=== PATIENT | female | born 1995 | race Hispanic/Latino ===

== ENCOUNTER 2019-03-16 05:30 | Inpatient (IN) | payer OTHER ==
--- NOTE | 2019-03-16 01:08 | PDOC.LDHP ---
Labor and Delivery H&P HPI: 23 y/o at 40 and 4/7 weeks for term induction (post-dates) Current gestational age (weeks): 40 Due date: 03/12/19 Grav: 1 Para: 0 Current complications: none Abnormal US findings: No Current medications: pre-rashawn vitamins Previous surgical history: none Allergies/Adverse Reactions: Allergies Allergy/AdvReac Type Severity Reaction Status Date / Time No Known Allergies Allergy Unverified 11/21/12 10:54 Social history: none - Physical Exam Vital signs reviewed and normal: yes General: NAD Heart: RRR Abdomen: gravid Extremeties: no edema FHT: category 1 - Assessment L&D Assessment: elective induction at term - Plan Plan: admit to L&D, cervical ripening
[~2019-03-16 05:30] MED LIST: Acetaminophen 500 MG TAB PO PRN; Butorphanol Tartrate 1 MG/ML VIAL SLOW IVP PRN; Carboprost 250 MCG/ML AMP IM PRN; NS w/ Oxytocin 10 units 500 ML IV SCH
[2019-03-16] MEDS ORDERED: Methylergonovine 0.2 MG/ML VIAL IM PRN (06:00)
[2019-03-16] MEDS ORDERED: Misoprostol 200 MCG TAB PR PRN (06:00)
[2019-03-16] MEDS ORDERED: Promethazine HCl 25 MG/ML VIAL IM PRN ×2 (06:00→20:55)
[2019-03-16] MEDS ORDERED: Lidocaine 1% (PF) 30 ML VIAL SC PRN (06:00)
[2019-03-16] MEDS ORDERED: Ibuprofen 800 MG TAB PO PRN (06:00)
[2019-03-16] MEDS ORDERED: hydrALAZINE 20 MG/ML VIAL SLOW IVP PRN (06:00)
[2019-03-16] MEDS ORDERED: Diphenoxylate HCl/Atropine Tablet PO PRN ×2 (06:00)
[2019-03-16] MEDS ORDERED: HYDROcodone/Acetaminophen 5/325 mg Tablet PO PRN ×2 (06:00)
[2019-03-16] MEDS ORDERED: Ondansetron PF 4 MG/2 ML Vial IVP PRN ×2 (06:00→20:55)
[2019-03-16 08:16] VITALS: BMI 33.9
[2019-03-16 08:19] LABS: Hemoglobin 12.2 g/dL (12.0-16.0); Mean Corpuscular HGB CONC 34.9 g/dL (32.0-36.0); Mean Corpuscular Hemoglobin 30.1 pg (27.0-31.0); Mean Corpuscular Volume 86.1 fL (78.0-98.0); Mean Platelet Volume 8.8 fL (7.4-10.4); Platelet Count 170 thou/uL (130-400); RBC Distribution Width 11.4 % (11.5-14.5); Red Blood Cell (RBC) Count 4.06 mill/uL (4.20-5.40); White Blood Cell (WBC) Count 9.8 thou/uL (4.8-10.8)
[2019-03-16] MEDS: Misoprostol 100 MCG TAB VAG SCH ×3 (08:53→19:15)
[2019-03-16] MEDS: Lactated Ringer's 1,000 ML IV SCH ×4 (08:54→20:16)
[2019-03-16 09:00] LABS: HBSAg Index 0.27 S/CO (0-0.99); Hep B Surf Ag Non-Reactive S/CO (NonReactive)
[2019-03-16 09:01] LABS: Syphilis Antibody Nonreactive (Nonreactive); Syphilis Antibody Index 0.04 S/CO (<1.00 Non-Reactive)
[2019-03-16] MEDS ORDERED: Bupivacaine 0.25% HCL 30 ML VIAL ONE (09:31)
[2019-03-16] MEDS: NS w/ Oxytocin 10 units 500 ML IV SCH (19:14)
[2019-03-16] MEDS ORDERED: Fentanyl 4 mcg/Bup 0.1% Cadd 100 ML ONE (20:12)
[2019-03-16] MEDS ORDERED: Naloxone HCl 0.4 mg/ml Vial IVP PRN ×2 (20:55)
[2019-03-16] MEDS ORDERED: Acetaminophen 325 MG TAB PO PRN (20:55)
[2019-03-16] MEDS ORDERED: diphenhydrAMINE 50 MG/ML VIAL IVP PRN (20:55)
[2019-03-16] MEDS ORDERED: ePHEDrine/0.9% NaCl/PF SYRINGE 50 mg/10 ml SLOW IVP PRN (20:55)
[2019-03-16] MEDS ORDERED: Lactated Ringer's 500 ML IV PRN (20:55)
[2019-03-16] MEDS ORDERED: Communication Order-Pharmacy FS SCH (21:00)
[2019-03-16] MEDS ORDERED: Fentanyl 4 mcg/Bupivacaine 0.1% Cassette 100 ML EPIDURAL SCH (21:00)
[2019-03-17] MEDS: NS / Oxytocin 40 units/1000ml 1,000 ML IV PRN ×2 (00:39→01:34)
[2019-03-17] MEDS ORDERED: Misoprostol 200 MCG TAB VAG PRN ×2 (02:35→21:28)
[2019-03-17] MEDS ORDERED: Benzocaine-Menthol 82.5 ML CAN TOP PRN ×2 (02:35→21:26)
[2019-03-17] MEDS ORDERED: hydrALAZINE 20 MG/ML VIAL SLOW IVP PRN ×2 (02:35→21:27)
[2019-03-17] MEDS ORDERED: Promethazine HCl 25 MG/ML VIAL IM PRN ×2 (02:35→21:29)
[2019-03-17] MEDS ORDERED: diphenhydrAMINE 25 MG CAP PO PRN ×2 (02:35→21:26)
[2019-03-17] MEDS ORDERED: Zolpidem Tartrate 5 MG TAB PO PRN ×2 (02:35→21:29)
[2019-03-17] MEDS ORDERED: HYDROcodone/Acetaminophen 5/325 mg Tablet PO PRN ×4 (02:35→21:27)
[2019-03-17] MEDS ORDERED: Bisacodyl 10 MG SUPP PR PRN ×2 (02:35→21:26)
[2019-03-17] MEDS ORDERED: Methylergonovine 0.2 MG/ML VIAL IM PRN ×2 (02:35→21:28)
[2019-03-17] MEDS ORDERED: Preparation H Ointment 28 GM TUBE PR PRN ×2 (02:35→21:29)
[2019-03-17] MEDS ORDERED: Milk Of Magnesia 30 ML UDCUP PO PRN ×2 (02:35→21:28)
[2019-03-17] MEDS ORDERED: Lanolin Ointment 7 GM TUBE TOP PRN ×2 (02:35→21:28)
[2019-03-17] MEDS ORDERED: Ondansetron PF 4 MG/2 ML Vial IVP PRN ×2 (02:35→21:28)
[2019-03-17] MEDS ORDERED: NS / Oxytocin 40 units/1000ml 1,000 ML IV SCH ×2 (02:35→21:30)
[2019-03-17] MEDS: Ibuprofen 800 MG TAB PO SCH ×4 (04:45→23:12)
[2019-03-17 05:38] LABS: Mean Corpuscular HGB CONC 34.5 g/dL (32.0-36.0); Mean Corpuscular Hemoglobin 29.9 pg (27.0-31.0); Mean Corpuscular Volume 86.7 fL (78.0-98.0); Mean Platelet Volume 8.7 fL (7.4-10.4); Platelet Count 140 thou/uL (130-400); RBC Distribution Width 11.5 % (11.5-14.5); Red Blood Cell (RBC) Count 3.69 mill/uL (4.20-5.40); White Blood Cell (WBC) Count 14.2 thou/uL (4.8-10.8)
[2019-03-17] MEDS ORDERED: Measles/Mumps/Rubella 10 MCG/0.5 ML VIAL SC ONE (09:00)
[2019-03-17] MEDS ORDERED: Varicella virus, LIVE 0.5 ML VIAL SC ONE (09:00)
[2019-03-17] MEDS ORDERED: Adacel (T-DAP) 0.5 ML SYRINGE IM ONE (09:00)
[2019-03-17] MEDS ORDERED: Prenatal Vitamin 1 TAB PO SCH (09:00)
--- NOTE | 2019-03-17 13:56 | PDOC.PP ---
Post Progress Note Post Day #: 0 PO intake tolerated: yes Flatus: yes Ambulation: yes Vital Signs (12 hours) Temp Pulse Resp BP Pulse Ox 03/17/19 12:11 98.3 F 73 20 110/54 L 03/17/19 08:15 97.7 F 100 20 120/75 98 03/17/19 03:30 98.5 F 85 17 118/58 L 98 Weight Weight 210 lb - Physical Examination General: NAD Cardiovascular: no m/r/g, RRR Respiratory: clear to auscultation bilaterally, non-labored breathing Abdominal: + bowel sounds, lochia, no distention Extremities: negative homans (B) Neurological: no gross focal deficits Psychiatric: A&Ox3, normal affect Result Diagrams: 03/17/19 05:26 Additional Labs: Post Labs Blood Type B POSITIVE 03/16/19 09:57 Hep Bs Antigen Non-Reactive S/CO (NonReactive) 03/16/19 08:08
[2019-03-17] MEDS: Docusate Calcium (SURFAK) 240 MG CAP PO SCH ×2 (14:06→21:32)
--- NOTE | 2019-03-17 15:26 | DN ---
DATE OF PROCEDURE: 03/17/2019 TIME OF SERVICE: 0033 Central Standard Time. PREOPERATIVE DIAGNOSIS: Intrauterine at 40 weeks and 4 days. POSTOPERATIVE DIAGNOSIS: Intrauterine at 40 weeks and 4 days. PROCEDURE: Spontaneous vaginal delivery over first-degree laceration of the perineum and a right periurethral laceration. FINDINGS: Viable female infant weighing 3169 g or 7 pounds 0 ounces. Apgars 9 and 9. QUANTITATIVE BLOOD LOSS: 292. COMPLICATIONS: None. PROCEDURE IN DETAIL: The patient presented to [facility] where she was admitted to the labor and delivery service. The patient underwent a normal and uneventful labor with normal cervical dilatation until she was found to be completely dilated. She was then allowed to push and was able to bring the baby down and delivered the baby in a vertex presentation without difficulties. Once the head delivered in occiput anterior position, the shoulders followed spontaneously along with the rest of the baby's body. Once out the baby's mouth and nose were bulb suctioned. The cord was clamped and cut and baby was handed to waiting attendants. Cord blood was collected. Gentle fundal massage was performed and the placenta delivered intact without problems. Hemostasis was assured. Quantitative blood loss was calculated. Inspection of the cervix, vaginal vault, and perineum did not reveal any lacerations needing suturing. Once again, hemostasis was within normal limits and the patient was allowed to recover in the labor and delivery room. Baby went to nursery. Job ID: [id number]
[2019-03-17] MEDS: Ferrous Sulfate 325 MG TAB PO SCH (21:00)
[2019-03-17] MEDS: Misoprostol 100 MCG TAB VAG SCH (21:01)
[2019-03-17] MEDS: NS w/ Oxytocin 10 units 500 ML IV SCH (21:02)
[2019-03-17] MEDS ORDERED: Docusate Calcium (SURFAK) 240 MG CAP PO SCH (21:30)
[2019-03-18] MEDS: Misoprostol 100 MCG TAB VAG SCH (05:00)
[2019-03-18] MEDS: Ibuprofen 800 MG TAB PO SCH ×2 (05:06→14:19)
[2019-03-18] MEDS ORDERED: Ferrous Sulfate 325 MG TAB PO SCH (08:00)
[2019-03-18 08:24] VITALS: BP 123/59; TEMP 97.6
[2019-03-18] MEDS ORDERED: Docusate Calcium (SURFAK) 240 MG CAP PO SCH (09:00)
[2019-03-18] MEDS ORDERED: Prenatal Vitamin 1 TAB PO SCH (09:00)
== END 2019-03-18 15:50 | disposition home or self-care (01) | DRG 807 ==
LOC: L&D 05:50 → 3SW 03-17 04:15 → UNDODISIN 03-17 16:45
PROVIDERS: ADMIT Obstetrics & Gynecology; ATTEND Obstetrics & Gynecology
PROC: 3E0P7VZ Introduction of Hormone into Female Reproductive, Via Natural or Artificial Opening (ICD-10-PCS; 2019-03-16)
PROC: 10E0XZZ Delivery of Products of Conception, External Approach (ICD-10-PCS; principal; 2019-03-17)
PROC: 0UQMXZZ Repair Vulva, External Approach (ICD-10-PCS; 2019-03-17)
DX: O48.0 Post-term pregnancy (principal); Z37.0 Single live birth; Z3A.40 40 weeks gestation of pregnancy; O71.82 Other specified trauma to perineum and vulva
CPT/HCPCS: 36415; 51702; 85027; 86780; 86850; 86900; 86901; 87340; J0595; J2405; J2590; S0020